=== PATIENT | male | born 1950 | race Caucasian/White ===

== ENCOUNTER → 2018-04-21 | Outpatient (CLI) | payer MEDICARE, OTHER | END | disposition home or self-care (01) | LOC: CDC 08:34 | DX: Z01.810 Encounter for preprocedural cardiovascular examination (principal); M72.0 Palmar fascial fibromatosis [Dupuytren]; M65.342 Trigger finger, left ring finger; I44.0 Atrioventricular block, first degree | CPT/HCPCS: 93000 ==